=== PATIENT | male | born 1945 | race Caucasian/White ===

== ENCOUNTER → 2023-09-16 | Outpatient (CLI) | payer MEDICARE, OTHER, SELFPAY ==
--- NOTE | 2023-09-16 11:10 | NEURO ---
NCS and/or EMG Patient Report Ordering Doctor: Maximus Severino DATE OF SERVICE: 09/16/23 Clinical Summary: 78 year old male patient presenting with complaints of numbness and tingling in the left hand and forearm up until his elbow. Symptoms are most pronounced on the medial side of the left hand. 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 This EMG/NCS was performed to evaluate for left ulnar mononeuropathy and/or cervical radiculopathy. Nerve Conduction Studies Summary: The left ulnar-D5 SNAP was absent. The left ulnar-goldberg SNAP was absent. The left ulnar-ADM CMAP was absent. The left median-D2 SNAP amplitude was low but the distal latency was normal. The left ulnar-FDI was absent. Needle Examination Summary: Needle examination demonstrated increased insertional activity and spontaneous activity (positive sharp waves and fibrillation potentials) in the left flexor carpi ulnaris and first dorsal interosseous muscles. There was a higher proportion of motor unit action potentials with reduced recruitment, increased amplitude, increased duration, and polyphasia in the left flexor carpi ulnaris. There were no motor units detected in the left first dorsal interosseous muscle. 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 There is no electrodiagnostic evidence of a left cervical radiculopathy. Multi Select Codes Neurology Neurology Interp Codes: 29218-38 Musc test done w/n test comp (interp) (1) and 11428-76 Nrv cndj test 7-8 studies (interp)
== END | disposition home or self-care (01) ==
LOC: PSN 09:44
PROVIDERS: PCP Family Medicine; Referring Provider Family Medicine; Visit Provider Family Medicine
DX: R20.0 Anesthesia of skin (principal)
CPT/HCPCS: 95886; 95910